=== PATIENT | male | born 2000 | race African-American/Black ===

== ENCOUNTER 2018-09-24 11:47 | Emergency (ER) | payer OTHER ==
[~2018-09-24] VITALS: Ht 170.2 cm; Wt 102.0 kg
[2018-09-24] MEDS ORDERED: IBUPROFEN 800MG TABLET PO ONE (12:30)
[2018-09-24 13:20] VITALS: BP 135/79
== END 2018-09-24 13:23 | disposition home or self-care (01) ==
LOC: ER 11:47
DX: S60.221A Contusion of right hand, initial encounter (principal); S09.90XA Unspecified injury of head, initial encounter; F17.200 Nicotine dependence, unspecified, uncomplicated; V49.88XA Car occupant (driver) (passenger) injured in other specified transport accidents, initial encounter; Y93.89 Activity, other specified; Y92.89 Other specified places as the place of occurrence of the external cause; Y99.8 Other external cause status
CPT/HCPCS: 73130; 99283

== ENCOUNTER 2024-08-28 00:11 | Emergency (ER) | payer OTHER ==
[~2024-08-28] VITALS: Ht 172.7 cm; Wt 82.0 kg
[2024-08-28 00:14] VITALS: BP 158/100; PULSE 122; RESP 18; TEMP 37.2; O2SAT 99
== END 2024-08-28 00:37 | disposition home or self-care (01) ==
LOC: ER 00:11
DX: R07.89 Other chest pain (principal); R00.0 Tachycardia, unspecified
CPT/HCPCS: 93005; 99283

== ENCOUNTER 2025-01-30 22:13 | Emergency (ER) | payer SELFPAY ==
[~2025-01-30] VITALS: Ht 177.8 cm; Wt 100.0 kg
[2025-01-30 22:34] VITALS: BP 146/89; PULSE 108; RESP 16; TEMP 36.7; O2SAT 100
[2025-01-30] MEDS ORDERED: MAGNESIUM/ALUMINUM HYDROXIDE/SIMETHICONE 30ML UDC PO ONE (23:15)
[2025-01-30] MEDS ORDERED: METOCLOPRAMIDE HCL 10MG/2ML VIAL IM ONE (23:15)
[2025-01-30] MEDS ORDERED: FAMOTIDINE 20MG TABLET PO ONE (23:15)
== END 2025-01-31 | disposition left against medical advice (07) ==
LOC: ER 22:13
DX: R10.12 Left upper quadrant pain (principal)
CPT/HCPCS: 99281